=== PATIENT | male | born 1980 | race Two or more races ===

== ENCOUNTER 2019-11-16 06:25 | Emergency (ER) | payer SELFPAY ==
[~2019-11-16] VITALS: Ht 167.6 cm; Wt 72.6 kg
[2019-11-16] MEDS ORDERED: Ketorolac 30mg Inj IV ONE (06:45)
[2019-11-16] MEDS ORDERED: Morphine Sulfate 4mg/ml Inj (IV USE ONLY) IVP ONE (06:45)
[2019-11-16 06:53] LABS: HEMOGLOBIN 16.5 G/DL (14.2-18.0); MEAN CORPUSCULAR VOLUME 85 FL (80-99); PLATELET COUNT 317 K/UL (150-450); RED BLOOD COUNT 5.41 M/UL (4.70-6.10); RED CELL DISTRIBUTION WIDTH 10.7 % (11.6-14.8); WHITE BLOOD COUNT 19.9 K/UL (4.8-10.8)
[2019-11-16 07:00] VITALS: BP 125/50
[2019-11-16 07:12] LABS: ANION GAP 11 mmol/L (5-15); BLOOD UREA NITROGEN 9 mg/dL (7-18); CARBON DIOXIDE 27 MMOL/L (21-32); CHLORIDE 98 MMOL/L (98-107); CREATININE 1.1 MG/DL (0.55-1.30); POTASSIUM 3.5 MMOL/L (3.5-5.1); SODIUM 136 MMOL/L (136-145)
[2019-11-16 07:15] LABS: ALANINE AMINOTRANSFERASE 22 U/L (12-78); ALBUMIN 3.3 G/DL (3.4-5.0); ALBUMIN/GLOBULIN RATIO 0.7 (1.0-2.7); ALKALINE PHOSPHATASE 119 U/L (46-116); ASPARTATE AMINO TRANSFERASE 15 U/L (15-37); BILIRUBIN,TOTAL 0.6 MG/DL (0.2-1.0)
[2019-11-16] MEDS ORDERED: Lidocaine 1% MPF 10mg/ml 5ml ONE (07:54)
[2019-11-16] MEDS ORDERED: Lidocaine 1% Plain 30 ml INJ ONE (08:00)
--- NOTE | 2019-11-16 08:09 | Emergency Room Report ---
History of Present Illness General Chief Complaint: Animal Bite Source: Patient Present Illness HPI 38-year-old male presents ED with abscess to left buttock. Brought in by EMS from home. States is been there for about 5 days. Believes it is a spider bite. Getting progressively more painful. Throbbing, 10 out of 10, radiating up the left side. Denies fevers or chills. Denies nausea or vomiting. Denies runny nose cough or congestion. No other aggravating relieving factors. Denies any other associated symptoms Allergies: Coded Allergies: No Known Allergies (Unverified , 11/16/19) COVID-19 Screening Contact w/high risk pt: No Recent Travel to affected area: No Experienced COVID-19 symptoms?: No Patient History Past Medical History: none Past Surgical History: none Pertinent Family History: none Social History: Denies: smoking, alcohol use, drug use Immunizations: UTD Reviewed Nursing Documentation: PMH: Agreed; PSxH: Agreed Nursing Documentation-PMH Past Medical History: No Stated History Review of Systems All Other Systems: negative except mentioned in HPI Physical Exam Vital Signs Date Time Temp Pulse Resp B/P (MAP) Pulse Ox O2 Delivery O2 Flow Rate FiO2 11/16/19 06:20 98.8 135 22 107/72 (84) 100 11/16/19 07:00 Room Air Sp02 EP Interpretation: reviewed, normal General Appearance: alert, GCS 15, non-toxic, mild distress Head: normocephalic, atraumatic Eyes: bilateral eye normal inspection, bilateral eye PERRL ENT: hearing grossly normal, normal pharynx, no angioedema, normal voice Neck: full range of motion, supple/symm/no masses Respiratory: chest non-tender, lungs clear, normal breath sounds, speaking full sentences Cardiovascular #1: regular rate, rhythm, no edema Cardiovascular #2: 2+ carotid (R), 2+ carotid (L), 2+ radial (R), 2+ radial (L) , 2+ dorsalis pedis (R), 2+ dorsalis pedis (L) Gastrointestinal: normal bowel sounds, non tender, soft, non-distended, no guarding, no rebound Rectal: deferred Genitourinary: normal inspection, no CVA tenderness Musculoskeletal: back normal, normal range of motion, gait/station normal, non- tender Neurologic: alert, motor strength/tone normal, oriented x3, sensory intact, responsive, speech normal Psychiatric: judgement/insight normal, memory normal, mood/affect normal, no suicidal/homicidal ideation Reflexes: 3+ bicep (R), 3+ bicep (L), 3+ tricep (R), 3+ tricep (L), 3+ knee (R) , 3+ knee (L) Skin: other - pustular abscess with surrounding erythema/induration L buttock. fluctuant Lymphatic: no adenopathy Procedures Incision and Drainage Incision and Drainage : Consent: Verbal Blade Size: 11 I & D Procedure: betadine prep, sterile drapes applied, sterile dressing applied Wound Location: other - L buttock Wound's Depth, Shape: other - abscess Wound Explored: purulent discharge expressed Anesthesia: 1% Lidocaine Splint Applied?: No Sling Applied?: No Patient Tolerated: Well Complications: None Medical Decision Making Diagnostic Impression: Primary Impression: Abscess of buttock ER Course Hospital Course 38 yo M presents with pain/abscess to L buttock Clinical course abscess, cellulitis, dermatitis Placed on stretcher. After initial history and physical I ordered labs, IV fluids, pain meds Labsmild leukocytosis, hemoglobin/hematocrit stable, electrolytes okay Given IV antibiotics here. Vitals stable. Abscess drained in ED. Dressing applied. Discussed findings with patient. Will discharge home with antibiotics , pain meds. Does not have a PMD. I will provide referral Diagnosis - abscess of buttock Stable and discharged to home with prescription for Motrin, norco, Bactrim, Keflex. wound Care instructions given. Followup with PMD. Return to ED if any signs of infection develop Labs Test 11/16/19 06:35 White Blood Count 19.9 K/UL (4.8-10.8) Red Blood Count 5.41 M/UL (4.70-6.10) Hemoglobin 16.5 G/DL (14.2-18.0) Hematocrit 46.0 % (42.0-52.0) Mean Corpuscular Volume 85 FL (80-99) Mean Corpuscular Hemoglobin 30.6 PG (27.0-31.0) Mean Corpuscular Hemoglobin Concent 36.0 G/DL (32.0-36.0) Red Cell Distribution Width 10.7 % (11.6-14.8) Platelet Count 317 K/UL (150-450) Mean Platelet Volume 5.8 FL (6.5-10.1) Neutrophils (%) (Auto) % (45.0-75.0) Lymphocytes (%) (Auto) % (20.0-45.0) Monocytes (%) (Auto) % (1.0-10.0) Eosinophils (%) (Auto) % (0.0-3.0) Basophils (%) (Auto) % (0.0-2.0) Differential Total Cells Counted 100 Neutrophils % (Manual) 78 % (45-75) Lymphocytes % (Manual) 17 % (20-45) Monocytes % (Manual) 4 % (1-10) Eosinophils % (Manual) 1 % (0-3) Basophils % (Manual) 0 % (0-2) Band Neutrophils 0 % (0-8) Platelet Estimate Adequate Platelet Morphology Normal Red Blood Cell Morphology Normal Sodium Level 136 MMOL/L (136-145) Potassium Level 3.5 MMOL/L (3.5-5.1) Chloride Level 98 MMOL/L (98-107) Carbon Dioxide Level 27 MMOL/L (21-32) Anion Gap 11 mmol/L (5-15) Blood Urea Nitrogen 9 mg/dL (7-18) Creatinine 1.1 MG/DL (0.55-1.30) Estimat Glomerular Filtration Rate > 60 mL/min (>60) Glucose Level 187 MG/DL (74-106) Calcium Level 9.0 MG/DL (8.5-10.1) Total Bilirubin 0.6 MG/DL (0.2-1.0) Aspartate Amino Transf (AST/SGOT) 15 U/L (15-37) Alanine Aminotransferase (ALT/SGPT) 22 U/L (12-78) Alkaline Phosphatase 119 U/L (46-116) Total Protein 7.8 G/DL (6.4-8.2) Albumin 3.3 G/DL (3.4-5.0) Globulin 4.5 g/dL Albumin/Globulin Ratio 0.7 (1.0-2.7) Last Vital Signs Date Time Temp Pulse Resp B/P (MAP) Pulse Ox O2 Delivery O2 Flow Rate FiO2 11/16/19 07:00 98.8 100 20 125/50 100 Room Air Status: improved Disposition: HOME, SELF-CARE Condition: Stable Scripts Trimethoprim/Sulfamethoxazole 160/800* (BACTRIM DS TABLET*) 1 Each Tablet 1 TAB ORAL Q12H, #14 TAB 0 Refills Prov: Paddy David MD 11/16/19 Cephalexin* (KEFLEX*) 500 Mg Capsule 500 MG ORAL EVERY 6 HOURS for 7 Days, CAP Prov: Paddy David MD 11/16/19 Hydrocodone Bit/Acetaminophen 5-325* (NORCO 5-325 TABLET*) 1 Each Tablet 1 TAB ORAL Q6H PRN for FOR PAIN, #10 TAB 0 Refills Prov: Paddy David MD 11/16/19 Ibuprofen* (MOTRIN*) 600 Mg Tablet 600 MG ORAL Q8H PRN for FOR PAIN, #30 TAB 0 Refills Prov: Paddy David MD 11/16/19 Referrals: NOT CHOSEN IPA/,REFERRING (PCP) Paddy David MD Nov 16, 2019 08:09
[2019-11-16] MEDS ORDERED: CEPHALEXIN500 MG ORAL (08:33)
[2019-11-16] MEDS ORDERED: IBUPROFEN600 M1 ORAL (08:33)
[2019-11-16] MEDS ORDERED: BACTRIM DS TAB1 EAC1 ORAL (08:33)
[2019-11-16] MEDS ORDERED: NORCO 5-325 TA1 EAC1 ORAL (08:33)
[2019-11-16 08:50] VITALS: BP 121/61
== END 2019-11-16 08:50 | disposition home or self-care (01) ==
LOC: EDBD 06:25 → EMR 07:01
DX: L02.31 Cutaneous abscess of buttock (principal); D72.829 Elevated white blood cell count, unspecified
CPT/HCPCS: 10060; 36415; 80053; 85007; 85025; 96365; 96375; 99284; J1885; J2001; J2270; J7030; S0077